=== PATIENT | female | born 1950 | race Caucasian/White ===

== ENCOUNTER 2017-05-24 06:34 | Day surgery (SDC) | payer MEDICARE ==
[~2017-05-24] VITALS: Ht 161.3 cm; Wt 67.6 kg
[~2017-05-24 06:34] MED LIST: ASPI81TA82 PO; METO50TA PO; ZOCO40TA PO
[2017-05-24] MEDS ORDERED: IOHEXOL 350 MG/ML 100 ML BTL (for Cath Lab) OTHER ONE (06:35)
[2017-05-24] MEDS ORDERED: IOHEXOL 350 MG/ML 50 ML BTL (for Cath Lab) OTHER ONE (06:35)
[2017-05-24] MEDS ORDERED: NS 1000P @30 MLS/HR (KVO) IV SCH (07:00)
[2017-05-24] MEDS ORDERED: ASPIRIN 325 MG TAB PO SCH (07:00)
[2017-05-24] MEDS ORDERED: ISOS30TA3 PO (07:16)
[2017-05-24] MEDS ORDERED: CLON0.5T PO (07:16)
[2017-05-24] MEDS ORDERED: NITR1SUB3 SL (07:16)
[2017-05-24] MEDS ORDERED: TRIA1SPR5 EACH NARE (07:16)
[2017-05-24] MEDS ORDERED: DILT0.05 PO (07:16)
[2017-05-24] MEDS ORDERED: MIRA3350 PO (07:16)
[2017-05-24] MEDS ORDERED: L. A1CAP (07:16)
[2017-05-24] MEDS ORDERED: ASPI325T PO (07:16)
[2017-05-24] MEDS ORDERED: SIMV40TA PO (07:16)
[2017-05-24 07:25] LABS: AUTOMATED NEUTROPHIL # 2.7 TH/MM3 (1.8-7.7); BASOPHIL % 0.9 % (0.0-2.0); EOSINOPHIL # 0.1 TH/MM3 (0-0.4); EOSINOPHIL % 2.3 % (0.0-4.0); HEMATOCRIT 43.7 % (35.0-46.0); HEMO FLAGS DIFF FINAL; LYMPH % 35.9 % (9.0-44.0); LYMPHOCYTE # 1.8 TH/MM3 (1.0-4.8); MEAN CELL VOLUME 90.2 FL (80.0-100.0); MEAN CORPUSCULAR HEMOGLOBIN 31.3 PG (27.0-34.0); MEAN CORPUSCULAR HGB CONC 34.7 % (32.0-36.0); MONO % 7.1 % (0.0-8.0); NEUT % 53.8 % (16.0-70.0); PLATELET COUNT 186 TH/MM3 (150-450); RED BLOOD COUNT 4.84 MIL/MM3 (4.00-5.30); RED CELL DISTRIBUTION WIDTH 11.9 % (11.6-17.2); WHITE BLOOD COUNT 5.1 TH/MM3 (4.0-11.0)
[2017-05-24 07:26] VITALS: BP 157/85; PULSE 80; RESP 16; TEMP 97.4; O2SAT 96
[2017-05-24 07:36] LABS: APTT (PATIENT) 27.3 SEC (24.3-30.1); INTERNATIONAL NORMALIZED RATIO 0.9 RATIO; PROTHROMBIN TIME - PATIENT 10.1 SEC (9.8-11.6)
[2017-05-24 07:37] LABS: POTASSIUM 3.5 MEQ/L (3.5-5.1)
[2017-05-24] MEDS ORDERED: MIDAZOLAM HCL 2 MG/2 ML VIAL ONE (08:53)
[2017-05-24] MEDS ORDERED: HEPARIN-NS/PF INJ 1,000 ML ONE (08:53)
[2017-05-24] MEDS ORDERED: BIVALIRUDIN 250 MG VIAL ONE (09:25)
[2017-05-24] MEDS ORDERED: CLOPIDOGREL 300 MG TAB ONE (10:04)
[2017-05-24] MEDS ORDERED: TEMAZEPAM 15 MG CAP PO PRN (10:15)
[2017-05-24] MEDS ORDERED: BIVALIRUDIN INJ 250 MG in SODIUM CHLORIDE 0.9% INJ 50 ML IV SCH (10:15)
[2017-05-24] MEDS ORDERED: ONDANSETRON HCL 4 MG/2 ML VIAL IV PUSH PRN (10:15)
[2017-05-24] MEDS ORDERED: MISC INFORMATION XX ONE (10:15)
[2017-05-24] MEDS ORDERED: oxyCODONE/ACETAMINOPHEN 5 MG/325 MG TAB PO PRN (10:15)
[2017-05-24] MEDS ORDERED: ACETAMINOPHEN 325 MG TAB PO PRN (10:15)
--- NOTE | 2017-05-24 10:19 | CATHPROC ---
Ingeniatrics HIS Report Study Information Study Number Admission Scheduled Start Study Start [id number] 05/24/2017 05/24/2017 May 24 2017 8:49AM Study Type [place] Service Left Heart Cath Cardiac Catheterization Referring Institution Admit Source Facility Department 1 Other [facility] - Sales Administration Manager Physician and Clinical Staff Initial Orlin Teran Lead Military Analyst Ori Locke,SOFYA Lead Military Analyst Diane Espinal,SOFYA Recorder Jacquelin Coy RCIS TECH2 Scrub Main Mahmood RCIS(BS) Procedures Performed Procedure Location (Site) Vessel Name Angiogram LV LV Ventricle Coronary Angiograms LCA Left Coronary Coronary Angiograms RCA Right Coronary Drug Eluting Inflatio RCA Prox Right Coronary PTCA RCA Prox Right Coronary Wire insertion Fem Art (right) Femoral Art Equipment Time Uptwist Spinner Description Size Mfg Part Number Used/Scraped TRANSDUCER, TRUWAVE [id number] 08:50 VAZQUEZ PRETTY * Used W/STOCKCOCK *[id number] *[id number] *[id number] *[id number] PIGTAIL ANG. 145 INFINITI [id number] CATHETER *[id number] *[id number] 09:58 DAIG/[employer]. [employer] MEDICAL ANGIOSEAL, FR6 VIP FR 6 Used *[id number] 08:50 woohoo mobile marketing INDUSTRIES PACK, CCL CUSTOM * Used *[id number] 08:50 [employer]oh[employer] PACER PEN, SKIN DUAL W/ RULER * Used *[id number] 09:39 MEDTRONIC BALLOON, 3.0 X 12MM EUPHORA 12MM Used *[id number] 09:36 MEDTRONIC STENT, 4.0 12MM CHELLE 4.0 12MM Used *[id number] 09:27 MEDTRONIC WIRE, COUGAR XT 190CM 190CM [id number] 09:39 Novaled MEDICAL 30 BRENNA INDEFLATOR Used *[id number] 08:50 Novaled MEDICAL SHEATH, FR6.5 PRELUDE 11CM FR 6.5 038ACT Used *[id number] 08:50 Novaled MEDICAL WIRE, 3MMJ .035 180CM 180CM Used *[id number] 08:50 [facility] MANIFOLD, 4 PORT * Used *[id number] 09:16 NYCOMED OMNIPAQUE, 300 MG, 50ML 50ML [id number] Used 08:50 NYCOMED OMNIPAQUE, 350 MG, 100ML 100ML [id number] Used [id number] 08:50 [place] MED[employer] BLANKET,WARM AIR CCL * Used *[id number] 09:48 [employer] PRIME WIRE, VERRATA 185CM 185CM [id number] *[id number] Used Equipment Model, Serial, Lot Number and Expiration Data Description Model Number Serial Number Lot Number Expiration Date ANGIOSEAL, FR6 VIP [id number] 03-01-2018 PIGTAIL ANG. 145 INFINITI [id number] 09-01-2019 CATHETER PRIME WIRE, VERRATA 185CM [id number] 05-01-2020 STENT, 4.0 12MM CHELLE [id number] 02-18-2019 History: Current Medications Medication Dosage/Unit Route Frequency Last Date/Time Taken ASA CARDIZEM NTG SL Statins (any) Imdur History: Allergies Allergy Reaction Sulfa (Sulfonamide Antibiotics) N/V History: Risk Factors Family History of Hypertension Dyslipidemia Previous RI Previous Heart Failure Premature CAD Yes Yes No No No Prior Valve Prior PCI Prior CABG Surgery No No No Cerebrovascular Peripheral Artery Chronic Lung On Dialysis Diabetes Disease Disease Disease No Yes No No No History: Symptoms/Diagnosis Selection Items Chest pain Palpitations History: Stress Tests Stress or Imaging Studies Performed Yes Standard Exercise Stress Test No Stress Echo No Stress Test SPECT No Stress Test CMR No Cardiac CTA Cardiac CTA Result Coronary Calcium Score Yes 2VD No History: Arrhythmias Selection Items Atrial fibrillation Supraventricular History: Other Current Smoker Method Quit Packs a Day Years Used Pack Years No Cigarettes 32 Years Ago 1 12 12 Labs Hgb (g/dl) Hct (%) WBC (l/cumm) Platelets (thousands) 11.60-17.00 35.00-51.00 4.00-11.00 150.00-450.00 15.2 43.7 5.1 186 Glucose (mg/dl) BUN (mg/dl) Creatinine (mg/dl) BUN:Creatinine (1:x) 74.00-106.00 7.00-18.00 0.50-1.30 10.00-20.00 96 14 0.9 15.6 Na (meq/l) K (meq/l) 136.00-145.00 3.50-5.10 142 3.5 INR (PTT:PT) 0.90-1.10 0.9 CPK-MB (ng/ML) 0.50-3.60 Not Drawn Medication Medication Total Dose (Bolus/Oral) Medication Total Dosage/Unit 1% XYLOCAINE 20 mL ANGIOMAX BOLUS 10.1 mL NTG (IC) 150 mcg PLAVIX 600 mg VERSED 2 mg Medications (Bolus/Oral) Medication Time Given Dosage/Unit Administered By Reason VERSED 05/24/2017 9:11:44 AM 2 mg Ori Locke 2 mg VERSED given in lab by Ori Locke, SOFYA in Left Antecubital via Peripheral IV. Ordered by Orlin Dumont. 1% XYLOCAINE 05/24/2017 9:13:04 AM 20 mL Orlin Brandt 20 mL 1% XYLOCAINE given in lab by Orlin Brandt in Right Groin via Subcutaneous. Ordered by Orlin Brandt. ANGIOMAX BOLUS 05/24/2017 9:28:36 AM 10.1 mL Ori Locke 10.1 mL ANGIOMAX BOLUS given in lab by Ori Locke, SOFYA in Left Antecubital via Peripheral IV. Orde red by Orlin Brandt. NTG (IC) 05/24/2017 9:51:32 AM 150 mcg Orlin Brandt 150 mcg NTG (IC) given in lab by Orlin Brandt via Intra-coronary. Ordered by Orlin Brandt. LCA 05/24/2017 10:05:03 PLAVIX 600 mg Ori Locke AM 600 mg PLAVIX given in lab by Ori Locke, SOFYA via Oral. Ordered by Orlin Brandt. Medication (Drip) Medication Time Given Dosage/Unit Concentration/Unit Diluent (ml) Solution ANGIOMAX DRIP 05/24/2017 9:30:51 AM 1.75 mg/kg/hr 250 mg 50 NaCl .9 1.75 mg/kg/hr ANGIOMAX DRIP given in lab by Ori Locke RN in Left Antecubital via Peripheral IV. Pump/Drip Flow = 23.66 ml/hr using NaCl .9 with a concentration of 250 mg in 50 ml. Ordered by Orlin Brandt. IV Solutions 05/24/2017 8:53:47 AM 0 mL (IV) 500 NaCl .9 IV Solutions given in lab by Diane Espinal, RN in Left Antecubital via Peripheral IV. Pump/Drip Nathan w = 20 ml/hr using NaCl .9. Initial Case Assessment Cardiovascular HR Rhythm NIBP Chest Pain 83 sr 142/80 0 Circulatory - Right Pulses Dorsalis Pedis Femoral 2 2 Scale (0,1,2,3,4,d) Circulatory - Left Pulses Dorsalis Pedis Femoral 2 2 Scale (0,1,2,3,4,d) Neurological State Oriented to time-place- Alert Moves all extremities person Respiration - General Respiration Rate SpO2 (%) (B/min) 11 97 Final Case Assessment Cardiovascular HR Rhythm NIBP Chest Pain 76 sr 141/77 0 Circulatory - Right Pulses Dorsalis Pedis Femoral 2 2 Scale (0,1,2,3,4,d) Circulatory - Left Pulses Dorsalis Pedis Femoral 2 2 Scale (0,1,2,3,4,d) Neurological State Oriented to time-place- Alert Moves all extremities person Respiration - General Respiration Rate SpO2 (%) (B/min) 20 95 Chronological Log Time Study Chronological Log 8:49:12 Patient arrived via Bed. 8:49:13 Patient Name, D.O.B, / Armband Verified By R.N. 8:49:14 Pre-op and post- op instructions given; patient acknowledges understanding of instructions. 8:49:15 Verbal Stimulation=2 Physical Stimulation=2 Airway=2 Respiration=2 TOTAL=8. (0=absent, 1=[place] ited, 2=present) 8:50:03 Presedation assessment performed by Sales Administration Manager RN. 8:50:05 Patient has been NPO for More than 6Hrs. 8:50:07 Skin Breakdown-NONE 8:50:08 Yasir Prominences Protected 8:50:11 A # 20 IV was noted in the Antecubital (left). Grade = patent 8:50:12 History and physical on the chart or being dictated. Vitals capture started with the following parameters, Patient=Adult, Interval=5 min, Initial Pre yxaty=510 mmHg, 8:53:01 Deflation Rate=5 mmHg, Cuff placed on Right Arm 8:53:33 NXRC=253/80 mmhg, SpO2=96.0 %, Resp=12 B/min, Pain=0, Lopez=2 IV Solutions given in lab by Diane Espinal, SOFYA in Left Antecubital via Peripheral IV. Pump/Dri p Flow = 20 ml/hr using 8:53:47 NaCl .9. Assessment: Initial Case, HR=83 BPM, Rhythm=sr, HLCR=255/80 mmhg, Chest Pain=0 Right Pulses: Walker Ped=2, Femoral=2 8:54:33 Left Pulses: Walker Ped=2, Femoral=2 Neurological: State=Alert, Ox3, [place] Respiration: Resp=11 B/min, SpO2=97 % 8:58:40 HR=79 bpm, HXMZ=437/71 mmhg, SpO2=96.0 %, Resp=12 B/min, Pain=0, Lopez=2 9:02:11 Bilateral groins prepped with 2% chlorhexidine, and draped after a 3 minute waiting time. 9:04:24 HR=78 bpm, KVKI=224/78 mmhg, SpO2=97.0 %, Resp=11 B/min, Pain=0, Lopez=2 9:05:25 MD arrived. 9:06:41 Reference ECG taken 9:09:21 HR=81 bpm, ZJUA=048/87 mmhg, SpO2=95.0 %, Resp=16 B/min, Pain=0, Dayami=10, Lopez=2 9:09:27 Pressure channel 1 zeroed. Time Out. Correct patient, correct procedure, correct physician, power injector not loaded with contrast with surgical 9:11:39 team present. Time Out Concurred by MD and individual staff in procedure. 9:11:44 2 mg VERSED given in lab by Ori Locke, SOFYA in Left Antecubital via Peripheral IV. Ordere d by Orlin Brandt. 9:12:57 Case Start 9:13:04 20 mL 1% XYLOCAINE given in lab by Orlin Brandt in Right Groin via Subcutaneous. Ordered by Orlin Brandt. 9:13:43 HR=77 bpm, DPWT=155/76 mmhg, SpO2=96.0 %, Resp=15 B/min 9:14:35 Access site was Right Femoral Artery. 9:14:44 A SHEATH, FR6.5 PRELUDE 11CM FR 6.5 was advanced into the Fem Art (right) using the Percutan eous technique. A PIGTAIL ANG. 145 INFINITI CATHETER FR 6 was advanced over a wire. OMNIPAQUE, 300 MG, 50ML 50ML was used 9:15:54 for injections. Recorded Pressure: LV, HR=77, Condition=Condition 1 9:16:46 (Left Ventricle) LV 154/3/7 9:17:31 The LV was injected at 10 cc/sec for a total of 20. OMNIPAQUE, 300 MG, 50ML 50ML used. Recorded Pressure: LV, Ao, HR=75, Condition=Condition 1 9:18:14 (Left Ventricle) LV 151/4/8, (Aorta) Ao 153/77/110 9:18:42 HR=75 bpm, LOCN=208/66 mmhg, SpO2=96 %, Resp=17 B/min 9:19:08 Catheter was removed A JL 4.0 INFINITI CATHETER FR 6 was advanced over a wire. OMNIPAQUE, 350 MG, 100ML 100ML was use d for 9:19:09 injections. 9:20:11 The LCA was injected and visualized at various angles. OMNIPAQUE, 350 MG, 100ML 100ML used. 9:22:43 Catheter was removed A 3DRC INFINITI CATHETER FR 6 was advanced over a wire. OMNIPAQUE, 350 MG, 100ML 100ML was used for 9:22:46 injections. 9:23:39 HR=77 bpm, NKML=141/76 mmhg, SpO2=95.0 %, Resp=16 B/min 9:24:45 The RCA was injected and visualized at various angles. OMNIPAQUE, 350 MG, 100ML 100ML used. 9:26:26 Catheter was removed A JR 4.0 GUIDE CATHETER FR 6 was advanced over a wire. OMNIPAQUE, 350 MG, 100ML 100ML was used f or 9:27:54 injections. 10.1 mL ANGIOMAX BOLUS given in lab by Ori Locke RN in Left Antecubital via Peripheral IV. Ordered by Rikki, 9:28:36 Orlin. 9:28:42 HR=79 bpm, YMRU=093/71 mmhg, SpO2=94.0 %, Resp=20 B/min 1.75 mg/kg/hr ANGIOMAX DRIP given in lab by Ori Locke, SOFYA in Left Antecubital via Periphera l IV. Pump/Drip Flow 9:30:51 = 23.66 ml/hr using NaCl .9 with a concentration of 250 mg in 50 ml. Ordered by Orlin Brandt. 9:31:16 A WIRE, COUGAR XT 190CM 190CM was inserted via Fem Art (right). 9:33:45 HR=75 bpm, VSHF=713/69 mmhg, SpO2=94.0 %, Resp=15 B/min, Dayami=10 A STENT, 4.0 12MM CHELLE 4.0 12MM was advanced through a JR 4.0 GUIDE CATHETER FR 6 over a WIRE, C OUGAR XT 9:35:19 190CM 190CM. 9:37:06 Stent not deployed. Stent removed and intact. Unable to cross. 9:38:02 A BALLOON, 3.0 X 12MM EUPHORA 12MM was inserted over WIRE, COUGAR XT 190CM 190CM via the RCA Prox. 9:38:40 HR=76 bpm, IUVL=207/75 mmhg, SpO2=95.0 %, Resp=16 B/min, Pain=0, Dayami=10, Lopez=2 A BALLOON, 3.0 X 12MM EUPHORA 12MM over a WIRE, COUGAR XT 190CM 190CM in the RCA Prox was inflat ed using 9:38:52 a 30 BRENNA INDEFLATOR at 16 brenna for 40 sec. 9:40:01 Balloon Removed. A STENT, 4.0 12MM CHELLE 4.0 12MM was advanced through a JR 4.0 GUIDE CATHETER FR 6 over a WIRE, C OUGAR XT 9:41:33 190CM 190CM. A STENT, 4.0 12MM CHELLE 4.0 12MM was deployed using a 30 BRENNA INDEFLATOR at 16 atmospheres for 35 seconds in 9:42:21 the RCA Prox. 9:43:41 Delivery device removed 9:43:43 HR=81 bpm, CBSB=144/83 mmhg, SpO2=96.0 %, Resp=11 B/min 9:45:14 Wire removed 9:45:18 Guide Catheter was removed A XB 3.5 GUIDE CATHETER FR 6 was advanced over a wire. OMNIPAQUE, 350 MG, 100ML 100ML was used f or 9:47:12 injections. 9:47:40 Pressure channel 1 zeroed. 9:48:48 HR=75 bpm, UMNO=508/71 mmhg, SpO2=94.0 %, Resp=15 B/min 9:51:32 150 mcg NTG (IC) given in lab by Orlin Brandt via Intra-coronary. Ordered by Orlin Brandt. LCA 9:52:46 A PRIME WIRE, VERRATA 185CM 185CM was inserted via Fem Art (right). 9:53:43 HR=74 bpm, KBPY=156/70 mmhg, SpO2=94.0 %, Resp=12 B/min 9:56:40 Flow Wire was was placed in the LAD PROX. The IFR measures 0.96 Percent. 9:57:46 The PRIME WIRE, VERRATA 185CM 185CM was removed. 9:58:13 Guide Catheter was removed 9:58:35 An injection in the Fem Art (right) was made through the SHEATH, FR6.5 PRELUDE 11CM FR 6.5. 9:58:42 HR=87 bpm, JBJZ=637/77 mmhg, SpO2=95 %, Resp=20 B/min 9:58:59 ANGIOSEAL, FR6 VIP FR 6 placement in the Fem Art (right) 10:00:24 Case End 10:00:45 Sterile dressing applied to site 10:00:48 No case complications noted. 10:00:52 Cine recording checked. Assessment: Final Case, HR=76 BPM, Rhythm=sr, PHFP=287/77 mmhg, Chest Pain=0 Right Pulses: Walker Ped=2, Femoral=2 10:00:55 Left Pulses: Walker Ped=2, Femoral=2 Neurological: State=Alert, Ox3, [place] Respiration: Resp=20 B/min, SpO2=95 % 10:03:43 HR=73 bpm, BDES=007/74 mmhg, SpO2=96.0 %, Resp=13 B/min, Pain=0, Lopez=2 10:05:03 600 mg PLAVIX given in lab by Ori Locke RN via Oral. Ordered by Orlin Brandt. 10:08:51 Vitals capture stopped. 10:12:37 Patient moved to bed 10:12:59 Patient transported to DOCU End Study - Contrast Media Used In Study Contrast Total Opened (mL) Total Used (mL) Total Wasted (mL) Omnipaque 130 130 0 End Study - Maximum Contrast Load Max Contrast Load (mL) 375.5 End Study - Radiation Exposure Fluoro Time (minutes) 9.8 End Study - Sheaths Sheaths Pulled By Sheath Hold Time (min) Orlin Brandt End Study - Patient Disposition Complications Transferred To Interventional Outcome No Telemetry Bed successful
--- NOTE | 2017-05-24 10:46 | MA ---
cc: DAVID JACOB M.D. DATE: 05/24/2017 PROCEDURE PERFORMED 1. Left heart catheterization. 2. Left ventriculography. 3. Coronary angiography. 4. Angioplasty and stenting of the proximal right coronary artery. 5. iFR measurement of the LAD. DESCRIPTION OF PROCEDURE The patient was brought to the cardiac label printer in a fasting state. Using 1% lidocaine for local anesthesia a 6.5 Persian sheath was inserted in the right femoral artery. Next, left ventricular pressure was measured using an angled pigtail catheter followed by left ventriculography and then a pullback. Coronary angiography was then completed using a left 4 Rebecca for the left coronary artery and a 3-D RC for the right coronary artery. I decided to stent the right coronary artery. I used a 6 Persian JR4 guiding catheter and a Helotes XT wire to cross the lesion. I tried to directly cross the stent but it would not cross. I predilated with a 3.0 x 12 balloon at 16 atmospheres. I then stented with a 4.0 x 12 Rashel stent at 16 atmospheres with an outstanding angiographic result. The guide was then pulled. I then with an XB 3.5 guiding catheter and a pressure wire and did iFR measurement of the LAD with a value of 0.96. Therefore the LAD was not intervened upon. Angiography was then obtained of the right femoral artery via the sheath followed by an uncomplicated Angio-Seal placement. The Angiomax will run until finished. She has been loaded with Plavix. I anticipate discharge tomorrow on aspirin and Plavix. FINDINGS HEMODYNAMICS Left ventricle pressure is 151/4 with an end-diastolic pressure of 8. Aortic pressure is 153/77 with a mean of 110. There was no gradient during pullback from the left ventricle to the aorta. LEFT VENTRICULOGRAPHY Left ventriculography shows normal left ventricular function. Estimated ejection fraction is 60%. There is only very mild coronary calcification seen. There are no wall motion abnormalities. There is no mitral regurgitation. CORONARY ANGIOGRAPHY The left main appears normal. It bifurcates into the LAD and circumflex vessels. The left circumflex is small giving off only one small marginal vessel. The left anterior descending artery just before the major diagonal and first septal comes off starts to taper. There is about 30-40% stenosis just before the septal and diagonal. At the level of the septal and diagonal the septal does not have any disease at its origin. The first diagonal has about 25% disease at its origin. Just past the septal the LAD then has about 50% stenosis, and then just past this is a second diagonal and then several more septals coming off distally. The distal LAD has irregularities only. The right coronary artery is dominant. The vessel has a corrugated appearance throughout the proximal vessel. It is a large caliber vessel, approximately 4 mm proximally. There is a discrete 80% proximal stenosis. At the junction of the proximal to mid vessel there is an additional 25% stenosis. Distally the vessel has irregularities only. It gives off a very large posterolateral branch system as well as the PDA branch and is dominant. RESULTS OF STENTING Following stenting of the proximal right coronary artery a 0% residual stenosis has been achieved. CONCLUSIONS 1. Normal hemodynamics. 2. Normal left ventricular function. 3. Two-vessel coronary artery disease which is severe in the right coronary artery and only mild to moderate in the LAD. 4. Successful stenting of the right coronary artery with a drug-eluting 4 mm stent. 5. Stenosis is present in the proximal LAD but is not hemodynamically significant and will be managed medically. PLAN The patient will be continued on aspirin and Plavix. Anticipate discharge home tomorrow if stable. MD RAMONA [place]/DARREN /10:07 AM /10:28 AM
[2017-05-24] MEDS ORDERED: SODIUM CHLOR 0.9% 1000 ML INJ 1,000 ML IV SCH (12:00)
[2017-05-24] MEDS ORDERED: BACITRACIN OINT 0.9 GM PKT TOP ONE (12:00)
--- NOTE | 2017-05-24 13:45 | EKG ---
Date Performed: 05/24/2017 Time Performed: 07:25:08 PTAGE: 67 years EKG: Sinus rhythm with PVC(s). rSr'(V1) - probable normal variant Anteroseptal T wave changes are nonspecific When com pared to previous tracing, sinus rate is slower. Atrial run is no longer present. Borderline ECG PREVIOUS TRACING : 05/15/2015 01.15 DOCTOR: Jamil Smith Interpretating Date/Time 05/24/2017 13:44:55
--- NOTE | 2017-05-24 17:45 | HHI.PR ---
Addendum to Inpatient Note Addendum Reason: Additional Documentation Additional Information No angina. Leg looks perfect. Clinically stable. DC home. No strenuous activity. Heart health diet, Clopidogrel 75 mfg and ASA daily reinforced. Simvastatin changed to atorvastatin 80mg. Keep OV 2 weeks. Orlin Brandt MD May 24, 2017 17:45
[2017-05-24] MEDS ORDERED: ATOR1TAB18 PO (17:47)
[2017-05-24] MEDS ORDERED: CLOP75TA PO (17:48)
--- NOTE | 2017-05-24 17:50 | EKG ---
Date Performed: 05/24/2017 Time Performed: 11:15:12 PTAGE: 67 years EKG: Sinus rhythm . rSr'(V1) - probable normal variant Anteroseptal T wave changes are nonspecific Borderline ECG Garth red to prior tracing no significant change PREVIOUS TRACING : 05/24/2017 07.25 DOCTOR: Jamil Smith Interpretating Date/Time 05/24/2017 17:49:57
[2017-05-24] MEDS ORDERED: PRAVASTATIN SOD 80 MG TAB PO SCH (21:00)
[2017-05-24] MEDS ORDERED: clonazePAM 0.5 MG TAB PO SCH (21:00)
[2017-05-25] MEDS ORDERED: ASPIRIN 81 MG CHEW TAB PO SCH (09:00)
[2017-05-25] MEDS ORDERED: ISOSORBIDE MONONITRATE 30 MG TAB PO SCH (09:00)
[2017-05-25] MEDS ORDERED: CLOPIDOGREL 75 MG TAB PO SCH (09:00)
[2017-05-25] MEDS ORDERED: DILTIAZEM-CD 180 MG CAP ER PO SCH (09:00)
== END 2017-05-24 18:13 | disposition home or self-care (01) ==
LOC: HCAT 06:34 → HDIC 06:35 → HCAT 18:13
PROVIDERS: ATTEND Internal Medicine Cardiovascular Disease
DX: I25.110 Atherosclerotic heart disease of native coronary artery with unstable angina pectoris (principal); I10 Essential (primary) hypertension; I48.0 Paroxysmal atrial fibrillation; I49.3 Ventricular premature depolarization; E78.5 Hyperlipidemia, unspecified; Z79.01 Long term (current) use of anticoagulants
CPT/HCPCS: 80048; 85025; 85610; 85730; 92928; 93005; 93458; 93571; 99152; 99153; C1725; C1760; C1769; C1874; C1887; C1893; G0269; J0583; J1644; J2250; J7030; Q9967

== ENCOUNTER 2017-05-28 15:57 | Emergency (ER) | payer MEDICARE ==
[~2017-05-28] VITALS: Ht 160 cm; Wt 67.0 kg
[~2017-05-28 15:57] MED LIST changes: +ASPI-183 PO; -ASPI81TA82 PO; +ATOR80TA45 PO; +CLON0.5T PO; +CLOP75TA PO; +DILT0.05 PO; +ISOS30TA3 PO; +L. A1CAP; -METO50TA PO; +MIRA3350 PO; +NITR1SUB3 SL; +SIMV40TA PO; +TRIA1SPR5 EACH NARE; -ZOCO40TA PO
[2017-05-28 15:59] VITALS: BP 204/100; PULSE 89; RESP 14; TEMP 98; O2SAT 99
[2017-05-28 16:07] VITALS: BP 173/86; PULSE 92; RESP 16; TEMP 98.3; O2SAT 100
[2017-05-28] MEDS ORDERED: SODIUM CHLORID 0.9% 500 ML INJ 500 ML IV ONE (16:15)
[2017-05-28] MEDS ORDERED: NITROGLYCERIN 0.4 MG SL 25 TABS/BTL SL ONE (16:15)
[2017-05-28] MEDS ORDERED: SODIUM CHLORIDE 0.9% FLUSH 10 ML FLUSH IVF PRN (16:15)
--- NOTE | 2017-05-28 16:18 | PD ---
HPI Chief Complaint: chest pain Time Seen by Provider: 16:03 Travel History International Travel<30 days: No Contact w/Intl Traveler<30days: No Traveled to known affect area: No History of Present Illness HPI The patient is a 67-year-old female who presents to the emergency department for chest pain. The patient states she developed chest pain while [place] [employer] earlier today, "killing time ", while her dog was at the [place]. The patient states the chest pain was sharp, located in epigastrium to the mid chest, and radiated up into the throat. She noted mild shortness of breath and nausea without any vomiting or diaphoresis. The patient states her pain prior to the cardiac catheterization she had performed on May 24, 2017 was heaviness, like someone sitting on her chest. Patient states his pain is very different. The sharp pain lasted approximately 20 seconds and then became a light pain which resolved 20-30 minutes later. She did not take any of her sublingual nitroglycerin. The patient denies any current pain or symptoms upon arrival. The patient's cloth bleaching range tender, Dr. Brandt, place a stent on May 24 of this month. She has been taking her medications which include Plavix on a daily basis. PFSH Past Medical History Cardiovascular Problems: Yes High Cholesterol: Yes Diminished Hearing: No Hypertension: Yes Menopausal: Yes : 1 Para: 2 Past Surgical History Appendectomy: Yes Section: No Cholecystectomy: Yes Gynecologic Surgery: Yes (oophrectomy 37 years ago.) Social History Alcohol Use: Yes (socially) Tobacco Use: No Substance Use: No Allergies-Medications (Allergen,Severity, Reaction): Coded Allergies: Sulfa (Sulfonamide Antibiotics) (Unverified Adverse Reaction, Mild, N/V, 05/28/17) Reported Meds & Prescriptions Reported Meds & Active Scripts Active Reported Lorazepam 0.5 Mg Tab 0.5 Mg PO Q8H PRN Clopidogrel (Clopidogrel Bisulfate) 75 Mg Tab 75 Mg PO DAILY Atorvastatin (Atorvastatin Calcium) 80 Mg Tab 80 Mg PO HS Isosorbide Mononitrate ER (Isosorbide Mononitrate) 30 Mg Campbell 30 Mg PO DAILY Simvastatin 40 Mg Tab 40 Mg PO HS Nitroglycerin SL (Nitroglycerin) 0.4 Mg Subl 0.4 Mg SL DIRECTED PRN ONE TABLET UNDER THE TONGUE NEEDED FOR CHEST PAIN, MAY REPEAT EVERY FIVE MINUTES FOR A TOTAL OF 3 DOSES OR CALL 911 IF NO RELIEF Nasacort Allergy 24Hr Nasal [place] (Triamcinolone Acetonide Nasal [place]) 55 Mcg Spr 55 Mcg EACH NARE DAILY Miralax Powder (Polyethylene Glycol 3350 Powder) 17 Gm Powd 17 Gm PO DAILY Mix and dissolve one measuring cap-ful (17 grams) in water or juice. Diltiazem ER 24 HR 180 Mg Campbell 180 Mg PO DAILY Clonazepam 0.5 Mg Tab 0.5 Mg PO BID Aspirin 325 Mg Tab 325 Mg PO DAILY Acidophilus Capsule (L. Acidophilus/Pectin, [place]) 7.5 Mg (30 Million Cell)- 100 Mg Capsule Review of Systems Except as stated in HPI: all other systems reviewed are Neg General / Constitutional: No: Fever HENT: No: Lightheadedness Cardiovascular: Positive: Chest Pain or Discomfort, No: Diaphoresis Respiratory: Positive: Shortness of Breath Gastrointestinal: Positive: Nausea, No: Vomiting, Abdominal Pain Neurologic: No: Dizziness Physical Exam Narrative GENERAL: Awake, alert, pleasant 67-year-old female who appears her stated age and is in no acute respiratory distress. SKIN: Focused skin assessment warm/dry. HEAD: Atraumatic. Normocephalic. EYES: Pupils equal and round. No scleral icterus. No injection or drainage. ENT: No nasal bleeding or discharge. Mucous membranes pink and moist. NECK: Trachea midline. No JVD. CARDIOVASCULAR: Regular rate and rhythm. No murmur appreciated. Palpation the chest wall does not reproduce symptoms. RESPIRATORY: No accessory muscle use. Clear to auscultation. Breath sounds equal bilaterally. GASTROINTESTINAL: Abdomen soft, non-tender, nondistended. No epigastric tenderness. MUSCULOSKELETAL: No obvious deformities. No clubbing. No cyanosis. No edema. Mild ecchymosis in the right groin from previous catheterization. NEUROLOGICAL: Awake and alert. No obvious cranial nerve deficits. Motor grossly within normal limits. Normal speech. PSYCHIATRIC: Appropriate mood and affect; insight and judgment normal. Data Data Last Documented VS Vital Signs Date Time Temp Pulse Resp B/P (MAP) Pulse Ox O2 Delivery O2 Flow Rate FiO2 05/28/17 16:26 99 Room Air 05/28/17 16:26 05/28/17 16:20 87 16 05/28/17 16:07 98.3 Orders Orders Electrocardiogram (05/28/17 16:11) Basic Metabolic Panel (Bmp) (05/28/17 16:11) Ckmb (Isoenzyme) Profile (05/28/17 16:11) Complete Blood Count With Diff (05/28/17 16:11) Comprehensive Metabolic Panel (05/28/17 16:11) Prothrombin Time / Inr (Pt) (05/28/17 16:11) Act Partial Throm Time (Ptt) (05/28/17 16:11) Chest, Single Ap (05/28/17 16:11) Ecg Monitoring (05/28/17 16:11) Bilateral Bp Monitoring (05/28/17 16:11) Iv Access Insert/Monitor (05/28/17 16:11) Oximetry (05/28/17 16:11) Oxygen Administration (05/28/17 16:11) Sodium Chloride 0.9% Flush (Ns Flush) (05/28/17 16:15) Nitroglycerin Sl (Nitrostat Sl) (05/28/17 16:15) Sodium Chlorid 0.9% 500 Ml Inj (Ns 500 M (05/28/17 16:15) Lipase (05/28/17 16:30) Labs Laboratory Tests Test 05/28/17 16:30 White Blood Count 6.2 TH/MM3 Red Blood Count 4.92 MIL/MM3 Hemoglobin 15.4 GM/DL Hematocrit 44.3 % Mean Corpuscular Volume 90.1 FL Mean Corpuscular Hemoglobin 31.4 PG Mean Corpuscular Hemoglobin Concent 34.8 % Red Cell Distribution Width 12.1 % Platelet Count 196 TH/MM3 Mean Platelet Volume 8.9 FL Neutrophils (%) (Auto) 64.5 % Lymphocytes (%) (Auto) 25.0 % Monocytes (%) (Auto) 8.1 % Eosinophils (%) (Auto) 1.9 % Basophils (%) (Auto) 0.5 % Neutrophils # (Auto) 4.0 TH/MM3 Lymphocytes # (Auto) 1.5 TH/MM3 Monocytes # (Auto) 0.5 TH/MM3 Eosinophils # (Auto) 0.1 TH/MM3 Basophils # (Auto) 0.0 TH/MM3 CBC Comment DIFF FINAL Differential Comment Prothrombin Time 9.9 SEC Prothromb Time International Ratio 0.9 RATIO Activated Partial Thromboplast Time 26.8 SEC Blood Urea Nitrogen 17 MG/DL Creatinine 0.89 MG/DL Random Glucose 92 MG/DL Total Protein 7.1 GM/DL Albumin 3.9 GM/DL Calcium Level 8.9 MG/DL Alkaline Phosphatase 145 U/L Aspartate Amino Transf (AST/SGOT) 22 U/L Alanine Aminotransferase (ALT/SGPT) 26 U/L Total Bilirubin 1.1 MG/DL Sodium Level 139 MEQ/L Potassium Level 3.4 MEQ/L Chloride Level 104 MEQ/L Carbon Dioxide Level 28.0 MEQ/L Anion Gap 7 MEQ/L Estimat Glomerular Filtration Rate 63 ML/MIN Total Creatine Kinase 61 U/L Lipase 140 U/L MDM Medical Decision Making Medical Screen Exam Complete: Yes Emergency Medical Condition: Yes Medical Record Reviewed: Yes Interpretation(s) EKG reveals normal sinus rhythm with a rate in 91. RSR prime in V1. No ischemic changes noted. Laboratory Tests Test 05/28/17 16:30 White Blood Count 6.2 TH/MM3 Red Blood Count 4.92 MIL/MM3 Hemoglobin 15.4 GM/DL Hematocrit 44.3 % Mean Corpuscular Volume 90.1 FL Mean Corpuscular Hemoglobin 31.4 PG Mean Corpuscular Hemoglobin Concent 34.8 % Red Cell Distribution Width 12.1 % Platelet Count 196 TH/MM3 Mean Platelet Volume 8.9 FL Neutrophils (%) (Auto) 64.5 % Lymphocytes (%) (Auto) 25.0 % Monocytes (%) (Auto) 8.1 % Eosinophils (%) (Auto) 1.9 % Basophils (%) (Auto) 0.5 % Neutrophils # (Auto) 4.0 TH/MM3 Lymphocytes # (Auto) 1.5 TH/MM3 Monocytes # (Auto) 0.5 TH/MM3 Eosinophils # (Auto) 0.1 TH/MM3 Basophils # (Auto) 0.0 TH/MM3 CBC Comment DIFF FINAL Differential Comment Prothrombin Time 9.9 SEC Prothromb Time International Ratio 0.9 RATIO Activated Partial Thromboplast Time 26.8 SEC Blood Urea Nitrogen 17 MG/DL Creatinine 0.89 MG/DL Random Glucose 92 MG/DL Total Protein 7.1 GM/DL Albumin 3.9 GM/DL Calcium Level 8.9 MG/DL Alkaline Phosphatase 145 U/L Aspartate Amino Transf (AST/SGOT) 22 U/L Alanine Aminotransferase (ALT/SGPT) 26 U/L Total Bilirubin 1.1 MG/DL Sodium Level 139 MEQ/L Potassium Level 3.4 MEQ/L Chloride Level 104 MEQ/L Carbon Dioxide Level 28.0 MEQ/L Anion Gap 7 MEQ/L Estimat Glomerular Filtration Rate 63 ML/MIN Total Creatine Kinase 61 U/L Lipase 140 U/L Last Impressions Chest X-Ray 05/28/17 1611 Signed Impressions: Service Date/Time: Sunday, May 28, 2017 16:14 - CONCLUSION: The lungs are clear. David Rendon MD Differential Diagnosis Differential diagnosis includes acute coronary syndrome, rethrombosis, GERD, esophageal spasm, musculoskeletal pain, pulmonary embolism, pancreatitis. Narrative Course IV was established, labs are drawn and sent, and the patient was placed on cardiac telemetry monitoring and continuous pulse oximetry monitoring. EKG was ordered and interpreted. The patient was administered nitroglycerin sublingual for pain. I had a discussion with the patient's cloth bleaching range tender, Dr. Brandt, at 4: 20 PM who states that the patient's anginal pain prior to stent placement was much different, was described as pressure and a "100 pound person "sitting on the chest. Today she complained of sharp pain that lasted several seconds and then became a dull pain which resolved within 30 minutes. The patient's EKG is unremarkable. A troponin was not ordered as the patient is within 1 week of cardiac catheter and it may be falsely elevated, therefore, CPK with CPK MB was sent to lab. After discussion with Dr. Brandt was agreed if the patient's workup is unremarkable she can be discharged home. The patient is comfortable with this plan of care. CPK is unremarkable. The patient will be provided a copy of her labs and is advised to follow-up with her cloth bleaching range tender on an outpatient basis. Return if symptoms worsen or progress. Diagnosis Primary Impression: Atypical chest pain Patient Instructions: General Instructions Additional Instructions: Please provide the patient a copy of her labs and chest x-ray results at discharge. Follow-up with your cloth bleaching range tender and your primary physician. Return if symptoms worsen or progress. Med/Other Pt SpecificInfo: No Change to Meds Disposition: 01 DISCHARGE HOME Condition: Stable Luis Barton MD May 28, 2017 16:18
[2017-05-28 16:20] VITALS: BP 173/86; PULSE 87; RESP 16
[2017-05-28 16:21] VITALS: BP 178/78
[2017-05-28 16:26] VITALS: O2SAT 99
[2017-05-28] MEDS ORDERED: LORA0.5T PO (16:32)
--- NOTE | 2017-05-28 16:32 | RADRPT ---
EXAM DATE/TIME: 05/28/2017 16:14 [facility] COMPARISON: No previous studies available for comparison. INDICATIONS : Patient complains of chest pain status post stent placement 2 days ago. MEDICAL HISTORY : Hypertension. SURGICAL HISTORY : Cardiac stent. ENCOUNTER: Initial ACUITY: 1 day PAIN SCORE: 5/10 LOCATION: chest FINDINGS: A single view of the chest demonstrates the lungs to be symmetrically aerated without evidence of mas s, infiltrate or effusion. The cardiomediastinal contours are unremarkable. Osseous structures are intact. CONCLUSION: The lungs are clear. David Rendon MD on May 28, 2017 at 16:30 Board Certified Radiologist. This report was verified electronically.
[2017-05-28 16:59] LABS: BASOPHIL % 0.5 % (0.0-2.0); EOSINOPHIL # 0.1 TH/MM3 (0-0.4); EOSINOPHIL % 1.9 % (0.0-4.0); HEMATOCRIT 44.3 % (35.0-46.0); HEMOGLOBIN 15.4 GM/DL (11.6-15.3); LYMPHOCYTE # 1.5 TH/MM3 (1.0-4.8); MEAN CELL VOLUME 90.1 FL (80.0-100.0); MEAN CORPUSCULAR HEMOGLOBIN 31.4 PG (27.0-34.0); MEAN CORPUSCULAR HGB CONC 34.8 % (32.0-36.0); MEAN PLATELET VOLUME 8.9 FL (7.0-11.0); MONO % 8.1 % (0.0-8.0); MONOCYTE # 0.5 TH/MM3 (0-0.9); NEUT % 64.5 % (16.0-70.0); PLATELET COUNT 196 TH/MM3 (150-450); RED BLOOD COUNT 4.92 MIL/MM3 (4.00-5.30); RED CELL DISTRIBUTION WIDTH 12.1 % (11.6-17.2); WHITE BLOOD COUNT 6.2 TH/MM3 (4.0-11.0)
[2017-05-28 17:11] LABS: INTERNATIONAL NORMALIZED RATIO 0.9 RATIO; PROTHROMBIN TIME - PATIENT 9.9 SEC (9.8-11.6)
[2017-05-28 17:19] LABS: ALBUMIN 3.9 GM/DL (3.4-5.0); ALT (GPT) 26 U/L (10-53); AST (GOT) 22 U/L (15-37); BLOOD UREA NITROGEN 17 MG/DL (7-18); CALCIUM 8.9 MG/DL (8.5-10.1); CHLORIDE 104 MEQ/L (98-107); CREATININE 0.89 MG/DL (0.50-1.00); GLOMERULAR FILTRATION RATE 63 ML/MIN (>89); GLUCOSE,RANDOM 92 MG/DL (74-106); LIPASE 140 U/L (73-393); SODIUM (NA) 139 MEQ/L (136-145)
[2017-05-28 17:21] LABS: ALKALINE PHOSPHATASE 145 U/L (45-117); TOTAL BILIRUBIN ADULT 1.1 MG/DL (0.2-1.0); TOTAL PROTEIN 7.1 GM/DL (6.4-8.2)
--- NOTE | 2017-05-30 21:10 | EKG ---
Date Performed: 05/28/2017 Time Performed: 16:13:55 PTAGE: 67 years EKG: Sinus rhythm POSSIBLE RIGHT VENTRICULAR CONDUCTION DELAY BORDERLINE ECG PREVIOUS TRACING : 05/24/2017 11.15 DOCTOR: Pascual Reynolds Interpretating Date/Time 05/30/2017 21:01:28
== END 2017-05-28 18:26 | disposition home or self-care (01) ==
LOC: NEPC 15:57
DX: R07.89 Other chest pain (principal); I10 Essential (primary) hypertension; E78.00 Pure hypercholesterolemia, unspecified; Z78.0 Asymptomatic menopausal state
CPT/HCPCS: 71010; 80053; 82550; 83690; 85025; 85610; 85730; 93005; 96360; 99285; J7040